=== PATIENT | female | born 1940 | race Caucasian/White ===

== ENCOUNTER → 2017-11-03 | Outpatient (CLI) | payer MEDICARE, BC ==
[~2017-11-03] MED LIST: ADV250/50 INH; HCTZ25 PO; LOR5 PO; MON10 PO; SPIR50TA31 PO
--- NOTE | 2017-11-06 17:26 | RADIOLOGY IMAGING REPORT ---
FACILITY: [facility] PATIENT NAME: SATINDER MCKINNON : [id number] MR: [id number] V: [id number] EXAM DATE: [id number] ORDERING PHYSICIAN: CHRISTIN CARTY TECHNOLOGIST: Gurinder Larios RDNY, [facility] EXAMINATION:TWO-DIMENSIONAL ECHOCARDIOGRAPH REASON:NONRHEUMATIC AORTIC VALVE STENOSIS/EDEMA 2D Measurements (normal values in centimeters) LV endLV endRV endVent.LV PostAorticLeftPercent DiastolicSystolicDiastolicSeptumWallRootAtriumShortening (3.5-5.7)(0.9-2.6)(0.6-1.1)(0.6-1.1)(2.0-3.7)(1.9-4.0)(25-35%) [id number]% STROKE VOLUME: 76ml ESTIMATED EJECTION FRACTION:65-67% LEFT VENTRICLE: Ejection fraction is 60-65% with Grade 1 diastolic dysfunction. There is mild left ventricular hypertrophy. RIGHT VENTRICLE: Normal size & function. RIGHT ATRIUM: Normal size. LEFT ATRIUM: Mildly dilated, no evidence of intra atrial shunting by Color flow Doppler. AORTIC VALVE: Leaflets are poorly visualized but appear sclerotic. Trace regurgitation, mild aortic stenosis noted with a max velocity of 265cm/sec & a mean pressure gradient of 17mm Hg. PULMONIC VALVE: Poorly visualized, trace insufficiency, no significant stenosis. MITRAL VALVE: Shows significant mitral annular calcification. Only trace regurgitation, no significant stenosis. TRICUSPID VALVE: Mild regurgitation without stenosis. RVSP estimated at 45-50mm Hg. PERICARDIUM: No pericardial effusion noted. PLEURAL EFFUSION: No significant pleural effusion. GREAT VESSELS: Ascending aorta appears to be normal size without aneurysm or dissection. OVERALL IMPRESSION: 1. Ejection fraction is 60-65% with Grade 1 diastolic dysfunction. 2. Mild left ventricular hypertrophy. 3. Mild aortic valve stenosis. 4. Mild pulmonary hypertension with an RVSP of 45-50mm Hg. 5. Compared to prior 05/04/10, mild aortic stenosis now present, otherwise unchanged. Dictated by: Mario Zepeda M.D. on 11/03/2017 at 18:11 Transcribed by: SORAYA on 11/06/2017 at 7:04 Approved by: Mario Zepeda M.D. on 11/06/2017 at 17:24 [facility]
== END ==
LOC: RESP 00:17
PROVIDERS: ATTEND Internal Medicine Cardiovascular Disease
DX: I50.30 Unspecified diastolic (congestive) heart failure (principal); I51.7 Cardiomegaly; I35.0 Nonrheumatic aortic (valve) stenosis; I27.20 Pulmonary hypertension, unspecified
CPT/HCPCS: 93306

== ENCOUNTER → 2017-11-06 | Outpatient (CLI) | payer MEDICARE, BC ==
--- NOTE | 2017-11-06 16:02 | RADIOLOGY IMAGING REPORT ---
FACILITY: [facility] PATIENT NAME: Rochelle Lambert : 1940 MR: [id number] V: [id number] EXAM DATE: ORDERING PHYSICIAN: TAMMY QUIROGA TECHNOLOGIST: Location: [facility] Patient: Rochelle Lambert : 1940 Visit/Account:[id number] Date of Sevice: 11/06/2017 Exam type: VENOUS DOPP LOWER BILAT EXTREM History: Bilateral lower extremity new onset of edema and swelling Comparison: None. Findings: The lower extremity veins were imaged bilaterally including the common femoral veins greater saphenou s veins profunda femoral vein superficial femoral vein, popliteal vein, posterior tibial vein peronea l vein and anterior tibial veins revealing no evidence of intraluminal thrombi. The veins were compr essible and demonstrated augmentation IMPRESSION: 1. No sonographic evidence DVT involving the lower extremity veins bilaterally Report Dictated By: Vane Guerin MD at 11/06/2017 3:56 PM Report E-Signed By: Vane Guerin MD at 11/06/2017 3:58 PM WSN:[email or web address]
== END ==
LOC: US 14:53
PROVIDERS: ATTEND Orthopaedic Surgery
DX: R60.0 Localized edema (principal)
CPT/HCPCS: 93970

== ENCOUNTER → 2018-09-04 | Outpatient (CLI) | payer MEDICARE, BC ==
--- NOTE | 2018-09-04 14:28 | EKG ---
FACILITY: [facility] [place] PATIENT NAME: SATINDER MCKINNON : [id number] MR: [id number] V: [id number] EXAM DATE: ORDERING PHYSICIAN: MARILEE BLACKWOOD TECHNOLOGIST: YESSY Test Reason : TACHYCARDIA Blood Pressure : / mmHG Vent. Rate : 175 BPM Atrial Rate : 082 BPM P-R Int : 000 ms QRS Dur : 092 ms QT Int : 180 ms P-R-T Axes : 070 -02 063 degrees QTc Int : 307 ms Sinus rhythm Low voltage QRS Cannot rule out Anterior infarct , age undetermined Abnormal ECG No previous ECGs available Confirmed by SUZY LEDESMA ([id number]) on 09/05/2018 6:36:24 AM Referred By: Confirmed By:SUZY LEDESMA
--- NOTE | 2018-09-04 16:00 | RADIOLOGY IMAGING REPORT ---
FACILITY: [facility] [place] PATIENT NAME: Rochelle Lambert : 1940 MR: [id number] V: [id number] EXAM DATE: ORDERING PHYSICIAN: MARILEE BLACKWOOD TECHNOLOGIST: Location: [facility] [place] Patient: Rochelle Lambert : 1940 Visit/Account:[id number] Date of Sevice: 09/04/2018 Technique: CHEST PA LAT HISTORY: Preop Comparison studies: Chest radiograph February 15, 2007 FINDINGS: No acute airspace consolidation. No pleural effusion. The cardiac silhouette is enlarged and is unchanged. IMPRESSION: 1. No acute cardiopulmonary process. 2. Cardiomegaly. Report Dictated By: Connor Campa DO at 09/04/2018 3:53 PM Report E-Signed By: Connor Campa DO at 09/04/2018 3:55 PM WSN:[id number]
== END ==
LOC: RESP 01:58
PROVIDERS: ATTEND Nurse Practitioner Psychiatric/Mental Health
DX: R09.02 Hypoxemia (principal); R00.0 Tachycardia, unspecified
CPT/HCPCS: 71046; 93005; 94060; 94726; 94729

== ENCOUNTER 2018-10-23 00:19 | Inpatient (IN) | payer MEDICARE, BC ==
[2018-10-22 14:46] LABS: INR 0.91
[~2018-10-23] VITALS: Ht 160 cm; Wt 103.4 kg
[2018-10-23] VITALS (10 sets, daily range): BP systolic 112–137; BP diastolic 73–89
--- NOTE | 2018-10-23 04:31 | LEVENE H&P ---
DATE OF ADMISSION: October 23, 2018 IDENTIFICATION/CHIEF COMPLAINT Rochelle is a 78-year-old woman with a chief complaint of left hip pain. HISTORY OF PRESENT ILLNESS Patient has a longstanding history of hip arthritis, progressively painful and debilitating, refractory to conservative care. Surgery is indicated to relieve symptoms after failure of nonoperative measures. PAST MEDICAL HISTORY Notable for history of atrial fibrillation, hypertension, sleep apnea, asthma, cor pulmonale. PAST SURGICAL HISTORY Notable for repair of an ankle fracture, bunion operation. ALLERGIES 1. DARVON. 2. THE OLD TETANUS VACCINE. 3. HORSE SERUM. CURRENT MEDICATIONS 1. Spironolactone 50 mg p.o. daily. 2. Hydrochlorothiazide 25 mg p.o. daily. 3. Diltiazem 180 mg p.o. daily. 4. Advair 2.5/50 two times per day. 5. Aspirin 81 mg p.o. daily. FAMILY HISTORY Notable for grandfather with heart disease, mother with breast cancer. SOCIAL HISTORY Notable for smoking for a year in the 1960s, none for a long time. She does drink wine on a daily basis. Denies abuse. REVIEW OF SYSTEMS Notable for aortic valve disease and some visual issues. PHYSICAL EXAMINATION GENERAL: This is a healthy female. HEENT: Normocephalic, atraumatic. NECK: Supple. LUNGS: Clear. HEART: Regular. ABDOMEN: Soft. ORTHOPEDIC: Left hip is extremely stiff. Attempt at flexion and rotation produces sharp pain. Hip girdle strength is grossly good. Skin envelope is intact. Calves nontender. Neurovascular function intact. ASSESSMENT Left hip degenerative joint disease, refractory to conservative care. PLAN Per patient request, proceed with total hip arthroplasty. Nature of the procedure, risks, benefits, and the anticipated rehabilitative course were outlined. Risks include but are not limited to , major medical or anesthetic complication, infection, neurovascular injury, blood transfusion, stiffness, scarring, fracture, tendon rupture, instability, leg length discrepancy, implant loosening, migration or failure, persistent or recurrent pain, need for additional surgery, and other unforeseen. She understands and wishes to proceed. A signed permit is placed in the chart. No guarantees are given or implied. [facility] HEALTH SYSTEMCamille
[2018-10-23] MEDS ORDERED: ceFAZolin(*) 2GM/D5W 50ML 50 ML IVPB ONE (12:30)
[2018-10-23] MEDS ORDERED: PREGABALIN 75 MG CAPSULE PO ONE (12:30)
[2018-10-23] MEDS ORDERED: CELECOXIB 200 MG CAP PO ONE (12:30)
[2018-10-23] MEDS ORDERED: FAMOTIDINE 20 MG TAB PO ONE (12:30)
[2018-10-23] MEDS ORDERED: ROPIVACAINE/EPI/CLONIDINE/KET 50 ML SYRINGE INJ ONE (12:30)
[2018-10-23] MEDS ORDERED: TRANEXAMIC AC 1000 MG/10ML SDV 1,000 MG in DEXTROSE 5% 50 ML BAG 50 ML IV ONE (12:30)
[2018-10-23] MEDS ORDERED: LIDOCAINE/SOD BICARB 8.4% SYR ID ONE (12:30)
[2018-10-23] MEDS ORDERED: MIDAZOLAM 2 MG/2 ML VIAL IVP PRN (12:30)
[2018-10-23] MEDS ORDERED: ACETAMINOPHEN 500 MG TAB PO ONE (12:30)
[2018-10-23] MEDS ORDERED: NORMOSOL R SOLN(*) 1000 ML BAG 1,000 ML IV PRN ×2 (12:30→19:15)
[2018-10-23] MEDS ORDERED: fentaNYL CITR 100 MCG/2 ML AMP ONE ×3 (15:04→19:26)
[2018-10-23] MEDS ORDERED: KETAMINE HCL 500 MG/10 ML VIAL ONE (15:06)
[2018-10-23] MEDS ORDERED: PROPOFOL EMUL(*) 10MG/ML 20 ML 20 ML ONE (15:07)
[2018-10-23] MEDS ORDERED: DEXAMETHASONE SOD PHOS 10MG/ML ONE (15:07)
[2018-10-23] MEDS ORDERED: ONDANSETRON 4 MG/2 ML VIAL ONE (15:07)
[2018-10-23] MEDS ORDERED: LIDOCAINE MPF 1% 5 ML VIAL ONE (15:07)
[2018-10-23] MEDS ORDERED: VANCOMYCIN 1 GM VIAL ONE (15:46)
[2018-10-23] MEDS ORDERED: DEXMEDETOMIDINE IN 0.9 % NACL 100 ML IV ONE (17:24)
[2018-10-23] MEDS ORDERED: BENZOCAINE/MENTHOL 1 EACH LOZG PO PRN (19:15)
[2018-10-23] MEDS ORDERED: FLUSH 10 ML SYR IVP PRN (19:15)
[2018-10-23] MEDS ORDERED: BISACODYL 10 MG SUPP PR PRN (19:15)
[2018-10-23] MEDS ORDERED: diphenhydrAMINE 25 MG CAP PO PRN (19:15)
[2018-10-23] MEDS ORDERED: PROMETHAZINE 25 MG/ML 1 ML AMP IVP PRN (19:15)
[2018-10-23] MEDS ORDERED: ACETAMINOPHEN 325 MG TAB PO PRN (19:15)
[2018-10-23] MEDS ORDERED: diphenhydrAMINE 50 MG/ML VIAL IVP PRN (19:15)
[2018-10-23] MEDS ORDERED: ZOLPIDEM TARTRATE 5 MG TAB PO PRN (19:15)
[2018-10-23] MEDS ORDERED: MAGNESIUM HYDROXIDE* 30ML UDCP PO PRN (19:15)
[2018-10-23] MEDS ORDERED: GUAI600T57 PO (20:24)
[2018-10-23] MEDS ORDERED: DILT180C81 PO (20:24)
[2018-10-23] MEDS ORDERED: crill oil PO (20:24)
[2018-10-23] MEDS ORDERED: eye vitamin PO (20:24)
--- NOTE | 2018-10-23 20:29 | Hospitalist Progress Note ---
Subjective Progress Notes Subjective Patient seen post-op. Reviewed PMHx (HTN, aortic stenosis, allergies/asthma) and medications. At present she only c/o dry mouth. She denies any CP/SOB/N/V. Physical Exam Vital Signs Date Time Temp Pulse Resp B/P (MAP) Pulse Ox O2 Delivery O2 Flow Rate FiO2 10/23/18 20:10 83 14 96 10/23/18 20:10 99.0 130/88 (102) Nasal Cannula 3.0 General Appearance: Alert, Awake Cardiovascular: Regular Rate and Rhythm (with systolic murmur) Respiratory: Clear to Auscultation Psych: Alert & Oriented X3 Assessment and Plan Problems: (1) S/P hip replacement Status: Acute Assessment & Plan: She appears to have tolerated OR/anesthesia fairly well. She will be on aspirin 325mg daily for DVT prophylaxis as per Dr. Jimenez. (2) HTN (hypertension) Status: Chronic Assessment & Plan: Will monitor BPs and resume her diltiazem, HCTZ, spironolactone as needed. (3) Asthma Status: Chronic Assessment & Plan: Will continue her Singulair, Advair. (4) Aortic stenosis Status: Chronic Assessment & Plan: She had cardiac evaluation pre-op. No current concerning symptoms. Watch volume status. ADELITA TY MD October 23, 2018 20:29
--- NOTE | 2018-10-23 20:49 | RADIOLOGY IMAGING REPORT ---
FACILITY: [facility] [place] PATIENT NAME: Rochelle Lambert : 1940 MR: [id number] V: [id number] EXAM DATE: ORDERING PHYSICIAN: TAMMY QUIROGA TECHNOLOGIST: Location: [facility] [place] Patient: Rochelle Lambert : 1940 Visit/Account:[id number] Date of Sevice: 10/23/2018 Exam type: Single view the pelvis History: Postoperative left hip arthroplasty Comparison: None. Findings: Postoperative changes are noted from left hip arthroplasty without hardware complication. Patient is rotated. Remainder of the osseous structures demonstrate osteopenia. IMPRESSION: 1. Postoperative changes are noted from recent left hip arthroplasty without hardware complication. Report Dictated By: Pritesh Richter MD at 10/23/2018 8:44 PM Report E-Signed By: Pritesh Richter MD at 10/23/2018 8:45 PM WSN:[id number]
[2018-10-23] MEDS: MONTELUKAST SODIUM 10 MG TAB PO SCH (21:50)
[2018-10-23] MEDS: APAP/HYDROCODONE 325/7.5 TAB PO PRN (23:38)
[2018-10-24] VITALS (10 sets, daily range): BP systolic 82–128; BP diastolic 56–79
[2018-10-24] MEDS: ceFAZolin(*) 1 GM VIAL 1 GM in NS(*) 0.9% 100 ML MINI-BAG 100 ML IVPB SCH ×3 (01:00→17:55)
[2018-10-24] MEDS: DIAZEPAM 5 MG TAB PO PRN ×2 (02:07→20:45)
--- NOTE | 2018-10-24 03:54 | OPERATIVE REPORT 1 ---
EVENT DATE: October 23, 2018 SURGEON: Julio Jimenez MD ANESTHESIOLOGIST: Mehdi Saeed DO ANESTHESIA: General with failed spinal. FILLING WINDER: Klaus Acuna PA-C PREOPERATIVE DIAGNOSIS Left hip degenerative joint disease. POSTOPERATIVE DIAGNOSIS Left hip degenerative joint disease. PROCEDURE PERFORMED Left total hip arthroplasty. ESTIMATED BLOOD LOSS 400 mL. DRAINS None. SPECIMENS None. COMPLICATIONS None apparent. IMPLANTS USED The [employer] system and Trident PSL BERMAN cluster acetabular shell, 52 mm, with a 0- degree polyethylene Trident X3 liner to accommodate 36 mm head; an Accolade II 130-degree neck angle hip stem, size 4, with a Biolox ceramic V40 femoral head, +7.5, 36 mm in diameter. Polyethylene is X3. INDICATIONS Rochelle has intractable pain and disability related to end-stage hip arthritis. Surgery is indicated to relieve symptoms after failure of nonoperative measures. DESCRIPTION OF PROCEDURE Patient was taken to the operating room and placed supine on the operating table. Spinal block was attempted but failed by the anesthesiologist. General anesthesia was induced. Antibiotics and TXA were administered IV. Patient was positioned right lateral decubitus on a well-padded peg board. Pelvis was secured in a vertical position. All bony prominences and superficial nerves were well padded. The left hip girdle and lower extremity were prepped and draped free in the usual sterile fashion for orthopedic surgery. A large posterolateral incision was made, carried down through the skin and subcutaneous layer to the deep fascia. Fascia was incised over the tip of the trochanter, extended distally in line with the femur and proximally in line with the pierre fibers. The pierre fibers were splint bluntly. A large fatty, almost mass-like lesion was encountered on the trochanteric bursa. This was excised and does not have any malignant features, appears to be a lipoma or fat collection. The interval between the abductor and external rotators was identified, and the abductor mechanism was protected with a blunt Hohmann. L- capsulotomy was performed with the horizontal limb above the piriformis. The piriformis and capsule were peeled off the femur. Tissue quality was very poor. This was tagged for later attempt at anatomic reattachment. The femoral head was dislocated. End-stage arthritis was noted. A 1.5 cm neck cut was made consistent with preoperative planning. Femoral head was removed and the femur was translocated anteriorly. Periacetabular retractors were placed with the tips down on bone. Labrum and pulvinar and extensive inflamed synovial tissue were excised, along with large cysts in the dome of the acetabulum. Medialization starts with a 44 mm reamer. Minimal medialization is performed, as it is already significantly eroded. It is expanded in 2 mm increments up to 50 and then 1 mm increments up to 52, where nice rim contact is obtained. A trial 52 has nice [id number]-mo-tsii fit. Due to questionable condition of the tissue, I elected not to overream. At this point, the surfaces were lavaged. Bone graft was taken from the femoral head to fill the defects in the cysts, and the cup was impacted in approximately 45 degrees of lateral opening and 15 to 20 degrees of anteversion using the transverse acetabular ligament, extracorporeal guide and internal bony landmarks to guide socket placement. There was a bit of posterior-superior overhang. This was felt to be ideal. As cup is rock stable, no adjuvant fixation is felt to be needed. The shell is lavaged and the liner is locked into the socket. Attention was turned to femoral preparation. The superior neck was resected with a cookie cutter. Peyman awl finds the canal. Tapered broaching was performed to a 4, where nice solid fill is obtained. Care was taken to lateralize and follow the washoe version of the calcar to about 15 degrees. Trial reduction was performed off this. Good islam of soft tissue tension and stability were achievable. The actual stem is then seated and seats at the same height. Trial reduction was performed with various neck lengths. A +7.5 is felt to be optimal. Verma taper is lavaged and dried. The actual Biolox head is impacted into position. Joint is reduced. Capsule is of very poor quality, and she has been lengthened a bit. Therefore, capsular closure is not performed. Hip is stable regardless. The wound is copiously lavaged. Pain cocktail infiltrated throughout. Vancomycin powder is placed deep in the wound. Deep fascia is closed with #2 Ethibond distally, #2 Vicryl proximally, subcu with 3-0 Vicryl, and the skin with surgical raj. Xeroform is applied, followed by dry sterile dressing and compression wrap. Patient is rolled supine, abductor pillow placed, awakened from anesthesia and taken to the recovery room in stable condition, having tolerated the procedure well. Plan is for standard [facility] rehab protocol, weightbearing as tolerated, posterior hip precautions. MTDD
[2018-10-24] MEDS: SALMETEROL/FLUTIC 250/50 1 INH INH SCH ×2 (05:38→17:03)
[2018-10-24] MEDS ORDERED: HYDR-654 PO (07:50)
[2018-10-24] MEDS: CELECOXIB 200 MG CAP PO SCH ×2 (08:32→17:55)
[2018-10-24] MEDS: ASPIRIN 325 MG TAB PO SCH (08:32)
[2018-10-24] MEDS: HYDROCHLOROTHIAZIDE 25 MG TAB PO SCH (08:33)
[2018-10-24] MEDS: SPIRONOLACTONE 25 MG TAB PO SCH (08:34)
[2018-10-24] MEDS: DILTIAZEM CD 180 MG CAPCR PO SCH (09:45)
--- NOTE | 2018-10-24 10:55 | NUR ---
Physical Therapy Impression PT eval completed with bed mobility and gait trng to access BR; close chair follow required to ensure safety. Physical Therapy Goals 1. Pt to be SBA/CGA for sit to/from stand transfers 2. Pt to be Min assist for bed mobility and sup<>sit trnsfers 3. Pt to ambulate x 200' with least restrictive device and SBA 4. Pt to aurora up/down small height platform step to simulate entry to home. Patient's Goals
[2018-10-24] MEDS: APAP/HYDROCODONE 325/7.5 TAB PO PRN ×2 (11:58→21:57)
--- NOTE | 2018-10-24 12:50 | Hospitalist Progress Note ---
Subjective Progress Notes Subjective MAMADOU overnight, doing well post op. Continue work with PT Physical Exam Vital Signs Date Time Temp Pulse Resp B/P (MAP) Pulse Ox O2 Delivery O2 Flow Rate FiO2 10/24/18 11:57 97 16 103/66 (78) 97 Nasal Cannula 3.0 10/24/18 08:30 98.6 Intake and Output 10/24/18 07:00 Intake Total 3200 ml Balance 3200 ml Intake Oral 100 ml IV Total 1550 ml Other 1550 ml # Voids 1 Neuro: No Gross deficits Cardiovascular: Other (irregularly irregular, 3/6 systolic RSB murmur) Respiratory: No Respiratory Distress Extremities: Warm, Pulses, Perfused Assessment and Plan Problems: (1) S/P hip replacement Status: Acute Assessment & Plan: She appears to have tolerated OR/anesthesia fairly well. She will be on aspirin 325mg daily for DVT prophylaxis as per Dr. Jimenez. (2) HTN (hypertension) Status: Chronic Assessment & Plan: Will monitor BPs and resume her diltiazem, HCTZ, spironolactone as needed. (3) Asthma Status: Chronic Assessment & Plan: Will continue her Singulair, Advair. (4) Aortic stenosis Status: Chronic Assessment & Plan: She had cardiac evaluation pre-op. No current concerning symptoms. Watch volume status. Exam Sepsis Risk: No Definite Risk VEGA KATYA CLARK DO October 24, 2018 12:50
[2018-10-24] MEDS ORDERED: LR 500 ML BAG 500 ML IV ONE (18:40)
--- NOTE | 2018-10-24 18:59 | EKG ---
[place] [facility] [place] NAME: SATINDER MCKINNON : [id number] MR: [id number] V: [id number] EXAM DATE: ORDERING PHYSICIAN: RK CALVO TECHNOLOGIST: CHITO Test Reason : IRREG HR Blood Pressure : / mmHG Vent. Rate : 076 BPM Atrial Rate : 090 BPM P-R Int : 168 ms QRS Dur : 098 ms QT Int : 390 ms P-R-T Axes : 000 -10 033 degrees QTc Int : 438 ms Sinus rhythm with marked sinus arrhythmia vs wandering atrial pacemaker Otherwise normal ECG When compared with ECG of 04-SEP-2018 13:10, Vent. rate has decreased BY 99 BPM Minimal criteria for Anterior infarct are no longer present Confirmed by RK CALVO ([id number]) on 10/24/2018 11:14:07 PM Referred By: UMESH Confirmed By:RK CALVO
--- NOTE | 2018-10-24 19:04 | Miscellaneous Provider Note ---
Miscellaneous Provider Note Note Staff concerned about an irregular heart beat and SBP 80-90's. The patient denies cp/sob. ECG showed a wandering atrial pacer vs NSR with PAC. She had a preop stress echo that showed mild/mod and normal EF. No WM abnormalities. US of the IVC, tonight, shows respiratory collapse of >50% diameter and the RV outflow tract on the parasternal long axis appears reduced in size to the aortic outflow tract and the LA. Will give her a bolus of LR and follow. RK CALVO MD October 24, 2018 19:04
[2018-10-24] MEDS: MONTELUKAST SODIUM 10 MG TAB PO SCH (20:45)
[2018-10-24] MEDS: DOCUSATE SODIUM 100 MG CAP PO SCH (20:45)
[2018-10-25] MEDS: DIAZEPAM 5 MG TAB PO PRN (03:43)
[2018-10-25] MEDS: SALMETEROL/FLUTIC 250/50 1 INH INH SCH ×2 (05:26→18:05)
[2018-10-25] MEDS: APAP/HYDROCODONE 325/7.5 TAB PO PRN ×3 (05:44→14:12)
[2018-10-25 05:46] VITALS: BP 118/72
--- NOTE | 2018-10-25 07:31 | NUR ---
Occupational Therapy Impression Pt. lying in bed, comfortably, receptive to all information/education but not wanted to get OOB at this time or "practice" utilizing DME to get dressed as pt. states she has been using DME at home for months to perform ADL's. Pt. states that she would like to d/c to [facility] but is open to d/c to home with care if this is not an option. Pt. ready for d/c to home with HH care when cleared medically and by PT services. Occupational Therapy Goals Patient's Goal
[2018-10-25 08:36] VITALS: BP 113/57
[2018-10-25] MEDS: DOCUSATE SODIUM 100 MG CAP PO SCH ×2 (08:42→21:26)
[2018-10-25] MEDS: HYDROCHLOROTHIAZIDE 25 MG TAB PO SCH (08:42)
[2018-10-25] MEDS: ASPIRIN 325 MG TAB PO SCH (08:42)
[2018-10-25] MEDS: CELECOXIB 200 MG CAP PO SCH ×2 (08:42→17:22)
[2018-10-25] MEDS: SPIRONOLACTONE 25 MG TAB PO SCH (08:42)
[2018-10-25] MEDS: DILTIAZEM CD 180 MG CAPCR PO SCH (08:42)
[2018-10-25] MEDS: POLYETHYLENE GLYCOL 17 GM PKT PO SCH (08:42)
[2018-10-25] MEDS: guaiFENesin 600 MG TABCR PO SCH ×2 (09:40→21:26)
--- NOTE | 2018-10-25 11:43 | Hospitalist Progress Note ---
Subjective Progress Notes Subjective She was admitted s/p hip replacement. Staff reports much improvement in heart rate and urine output since bolus given last night. No new concerns from staff this morning. Patient Complains of: Cardiovascular: No: Chest Pain Respiratory: No: Shortness of Breath Physical Exam Vital Signs Date Time Temp Pulse Resp B/P (MAP) Pulse Ox O2 Delivery O2 Flow Rate FiO2 10/25/18 09:51 97 Nasal Cannula 2.0 10/25/18 08:36 98.7 70 16 113/57 (75) Intake and Output 10/25/18 07:00 Intake Total 2192 ml Balance 2192 ml Intake Oral 1130 ml IV Total 1062 ml # Voids 7 General Appearance: Alert, Awake, No Acute Distress, Afebrile Cardiovascular: Regular Rate and Rhythm Respiratory: No Respiratory Distress, Clear to Auscultation GI: Soft and Non-Tender Psych: Alert & Oriented X3, Appropriate Mood & Affect Assessment and Plan Problems: (1) S/P hip replacement Status: Acute Assessment & Plan: She appears to have tolerated OR/anesthesia fairly well. She will be on aspirin 325mg daily for DVT prophylaxis as per Dr. Jimenez. (2) HTN (hypertension) Status: Chronic Assessment & Plan: Will monitor BPs and resume her diltiazem, HCTZ, spironolactone as needed. (3) Asthma Status: Chronic Assessment & Plan: Will continue her Singulair, Advair. (4) Aortic stenosis Status: Chronic Assessment & Plan: She had cardiac evaluation pre-op. No current concerning symptoms. Watch volume status. Exam Sepsis Risk: No Definite Risk KENDAL BAIRD TRAFFIC ROUTING ENGINEER October 25, 2018 11:43
[2018-10-25 13:12] VITALS: BP 103/59
--- NOTE | 2018-10-25 16:15 | NUR ---
Physical Therapy Impression Pt aurora review of winnie walker use; FWW ambulation in hallway x 200' and up/down low platform step x 2 reps to simulate stairs to home. Pt's bed mobility is improving slowly. Physical Therapy Goals 1. Pt to be SBA/CGA for sit to/from stand transfers 2. Pt to be Min assist for bed mobility and sup<>sit trnsfers 3. Pt to ambulate x 200' with least restrictive device and SBA 4. Pt to aurora up/down small height platform step to simulate entry to home. Patient's Goals
[2018-10-25 16:18] VITALS: BP 117/84
[2018-10-25 19:52] VITALS: BP 115/69
[2018-10-25] MEDS: MONTELUKAST SODIUM 10 MG TAB PO SCH (21:26)
[2018-10-25 22:29] VITALS: BP 120/81
[2018-10-26 01:57] VITALS: BP 123/75
[2018-10-26] MEDS: APAP/HYDROCODONE 325/7.5 TAB PO PRN ×2 (01:57→15:14)
[2018-10-26] MEDS: SALMETEROL/FLUTIC 250/50 1 INH INH SCH (05:31)
[2018-10-26 07:41] VITALS: BP 108/67
[2018-10-26] MEDS: DILTIAZEM CD 180 MG CAPCR PO SCH ×2 (07:50→09:47)
[2018-10-26] MEDS: SPIRONOLACTONE 25 MG TAB PO SCH (07:50)
[2018-10-26] MEDS: HYDROCHLOROTHIAZIDE 25 MG TAB PO SCH (07:50)
[2018-10-26] MEDS: DOCUSATE SODIUM 100 MG CAP PO SCH (08:39)
[2018-10-26] MEDS: ASPIRIN 325 MG TAB PO SCH (08:39)
[2018-10-26] MEDS: guaiFENesin 600 MG TABCR PO SCH (08:39)
[2018-10-26] MEDS: CELECOXIB 200 MG CAP PO SCH (08:40)
[2018-10-26] MEDS: POLYETHYLENE GLYCOL 17 GM PKT PO SCH (08:40)
[2018-10-26] MEDS ORDERED: ASPI-757 PO (09:03)
[2018-10-26 11:30] VITALS: BP 107/85
--- NOTE | 2018-10-26 11:47 | Hospitalist Progress Note ---
Subjective Progress Notes Subjective She was admitted s/p hip replacement. She has no complaints this morning. She would like to go home today. Patient Complains of: Cardiovascular: No: Chest Pain Respiratory: No: Shortness of Breath Physical Exam Vital Signs Date Time Temp Pulse Resp B/P (MAP) Pulse Ox O2 Delivery O2 Flow Rate FiO2 10/26/18 11:30 98.2 16 107/85 (92) 10/26/18 07:41 96 Nasal Cannula 3.0 10/26/18 07:41 76 Intake and Output 10/26/18 07:00 Intake Total 1600 ml Balance 1600 ml Intake Oral 1600 ml # Voids 6 General Appearance: Alert, Awake, No Acute Distress, Afebrile Neuro: No Gross deficits Cardiovascular: Regular Rate and Rhythm Respiratory: No Respiratory Distress, Clear to Auscultation GI: Soft and Non-Tender Psych: Alert & Oriented X3, Appropriate Mood & Affect Assessment and Plan Problems: (1) S/P hip replacement Status: Acute Assessment & Plan: She appears to have tolerated OR/anesthesia fairly well. She will be on aspirin 325mg daily for DVT prophylaxis as per Dr. Jimenez. (2) HTN (hypertension) Status: Chronic Assessment & Plan: Will monitor BPs and resume her diltiazem, HCTZ, spironolactone as needed. (3) Asthma Status: Chronic Assessment & Plan: Will continue her Singulair, Advair. (4) Aortic stenosis Status: Chronic Assessment & Plan: She had cardiac evaluation pre-op. No current concerning symptoms. Watch volume status. Exam Sepsis Risk: No Definite Risk KENDAL BAIRD October 26, 2018 11:47
--- NOTE | 2018-10-26 14:00 | NUR ---
Physical Therapy Impression PT goals met; pt ready for d/c and indicates that she plans to have out pt PT at [facility] and may consider private pay health at home if needed. Physical Therapy Goals 1. Pt to be SBA/CGA for sit to/from stand transfers 2. Pt to be Min assist for bed mobility and sup<>sit trnsfers 3. Pt to ambulate x 200' with least restrictive device and SBA 4. Pt to aurora up/down small height platform step to simulate entry to home. Patient's Goals
== END 2018-10-26 15:40 | disposition home or self-care (01) | DRG 470 ==
LOC: OR 00:19 → MED 20:00
PROVIDERS: ADMIT Orthopaedic Surgery; ATTEND Orthopaedic Surgery
PROC: 0SRB04A Replacement of Left Hip Joint with Ceramic on Polyethylene Synthetic Substitute, Uncemented, Open Approach (ICD-10-PCS; principal; 2018-10-23 14:45)
DX: M16.12 Unilateral primary osteoarthritis, left hip (principal); Z68.41 Body mass index [BMI] 40.0-44.9, adult; I48.2 Chronic atrial fibrillation; I10 Essential (primary) hypertension; I27.81 Cor pulmonale (chronic); I35.0 Nonrheumatic aortic (valve) stenosis; R06.81 Apnea, not elsewhere classified; E66.9 Obesity, unspecified; R09.02 Hypoxemia; J44.9 Chronic obstructive pulmonary disease, unspecified; Z88.8 Allergy status to other drugs, medicaments and biological substances; Z88.7 Allergy status to serum and vaccine; Z87.891 Personal history of nicotine dependence
CPT/HCPCS: 36415; 72170; 85610; 86850; 86900; 86901; 93005; 94640; 97161; C1776; J0690; J1100; J2001; J2250; J2405; J2704; J3010; J3370; J7060; J7120

== ENCOUNTER → 2018-11-05 | Outpatient (CLI) | payer MEDICARE, BC ==
[~2018-11-05] MED LIST changes: +ASPI-757 PO; +DILT180C81 PO; +GUAI600T57 PO; +HYDR-654 PO; +crill oil PO; +eye vitamin PO
--- NOTE | 2018-11-05 16:26 | RADIOLOGY IMAGING REPORT ---
FACILITY: [facility] - [place] PATIENT NAME: Rochelle Lambert : 1940 MR: [id number] V: [id number] EXAM DATE: ORDERING PHYSICIAN: TAMMY QUIROGA TECHNOLOGIST: [facility] Patient: Rochelle Lambert : 1940 Visit/Account:[id number] Date of Sevice: 11/05/2018 Exam type: HIP LEFT History: Pain in left hip status post fall, hip surgery 10/23/2018 Comparison: October 23, 2018. Findings: Three views the left hip demonstrate a left hip arthroplasty that appears in good anatomic alignment. No evidence of acute fracture or dislocation. No evidence of prosthetic loosening. The pubic symp hysis appears to be intact IMPRESSION: 1. Left hip arthroplasty appears to been good anatomic alignment with no evidence of acute fracture or dislocation Report Dictated By: Vane Guerin MD at 11/05/2018 4:20 PM Report E-Signed By: Vane Guerin MD at 11/05/2018 4:21 PM WSN:[email or web address]
== END ==
LOC: RAD 12:23
PROVIDERS: ATTEND Orthopaedic Surgery
DX: T84.84XA Pain due to internal orthopedic prosthetic devices, implants and grafts, initial encounter (principal)

== ENCOUNTER 2018-11-12 11:49 | Emergency (ER) | payer MEDICARE, BC ==
[2018-11-12] MEDS ORDERED: METH-280 PO (12:04)
[2018-11-12] MEDS ORDERED: LORA10CA3 PO (12:04)
[2018-11-12] MEDS ORDERED: POTA99TA6 PO (12:04)
--- NOTE | 2018-11-12 12:05 | ER Report ---
History and Physical Time Seen By MD: 12:05 Hx. of Stated Complaint: fell about 0400 this am HPI/ROS CHIEF COMPLAINT: Fall, hit head HISTORY OF PRESENT ILLNESS: 78 year old female presents to ED after having a fall this morning and hitting her head. Patient reports she really doesn't remember the fall, however, she assumes she was going to the bathroom around 0400, and after she washed her hands she fell and hit the right side of her forehead and eye on the counter. Her then called EMS to get her up. She declined coming to the ED at that time. She reports she does not know how she fell, unsure if she was dizzy, and unsure if she tripped over anything. Patient reports she thinks she fell on her right hip, but denies pain in that area. Reports pain with palpation only of the right eye and right above the right eyebrow where the laceration is located. She reports she suspects she fell due to her medications and the fact she drank "a stiff glass of adolfo" last night prior to going to bed. REVIEW OF SYSTEMS: Constitutional: No fever. No change in appetite. HENT: Pain with palpation of right eye and above right eyebrow. Denies headache, blurry vision, dizziness. Respiratory: No cough, no dyspnea. Cardiovascular: No chest pain, no palpitations. Gastrointestinal: No vomiting, no abdominal pain. Musculoskeletal: No back pain. Allergies: Coded Allergies: egg (Verified Allergy, Severe, 11/12/18) propoxyphene (Verified Allergy, Mild, nausea, 11/12/18) Uncoded Allergies: horse serum (Allergy, Unknown, 10/17/18) Home Meds Active Scripts Aspirin (ASPIRIN) 325 Mg Tablet, 325 MG PO QDAY, #30 TAB Prov:KENDAL BAIRD Jasbir PEDIATRIC ORTHODONTIST 10/26/18 Reported Medications Dicloxacillin Sodium (DICLOXACILLIN SODIUM) 500 Mg Capsule, 500 MG PO BID, CAPSULE 11/12/18 Potassium Gluconate (POTASSIUM) 99 Mg Tablet, 99 MG PO 11/12/18 Loratadine (CLARITIN) 10 Mg Capsule, 10 MG PO PRN, CAPSULE 11/12/18 Methocarbamol (METHOCARBAMOL) 750 Mg Tablet, 750 MG PO QID 11/12/18 [eye vitamin] No Conflict Check, 1 TAB PO DAILY 10/23/18 [crill oil] No Conflict Check, 1 TAB PO DAILY 10/23/18 Guaifenesin (MUCINEX) 600 Mg Tablet.er, 600 MG PO BID 10/23/18 Diltiazem Hcl (DILTIAZEM ER) 180 Mg Cap.er.deg, 180 MG PO DAILY 10/23/18 Montelukast Sodium (Singulair) 10 Mg Tab, 10 MG PO QDAY, 0 Refills 03/28/10 Hydrochlorothiazide (Hydrochlorothiazide) 25 Mg Tab, 25 MG PO QDAY, 0 Refills Hold for 2 days, then resume. If you feel dizzy, stop medication and notify Primary Care Provider. 03/28/10 Spironolactone (Spironolactone) 50 Mg Tablet, 50 MG PO DAILY, 0 Refills Hold for 4 days, then resume. If you feel dizzy, stop medication and call your primary care provider. 03/28/10 Salmeterol Xinaf/Fluticasone (Advair 250/50 Diskus) 250 Mcg/50 Mcg Inh, 1 PUFF INH BID, 0 Refills 1 PUFF 03/28/10 Discontinued Reported Medications Hydrocodone Bit/Acetaminophen (NORCO 7.5-325 TABLET) 1 Each Tablet, 1 EACH PO Q4H PRN for PAIN, #42 10/24/18 Past Medical/Surgical History Past medical hx of HTN, asthma, spurs on spine, arthritis, fracture of ankle 1998, eczema, and aortic stenosis. Past surgical hx of hysterectomy, ankle surgery in 1998, bunion surgery 1999, left hip replacement October 2018, tonsillectomy, cataract surgery. Reviewed Nurses Notes: Yes Hx Smoking: Yes (FOR 3 YRS 1960) Smoking Status: Former Smoker Hx Substance Use Disorder: No Hx Alcohol Use: Yes Constitutional Vital Sign - Last 24 Hours 11/12/18 11/12/18 11/12/18 11/12/18 11:55 12:00 12:30 13:00 Temp 98.7 Pulse 103 111 101 Resp 18 B/P (MAP) 128/85 123/89 (100) 121/76 (91) Pulse Ox 94 89 95 97 O2 Delivery Room Air 11/12/18 11/12/18 11/12/18 11/12/18 14:00 14:30 15:00 15:30 Pulse ??? 106 102 ??? B/P (MAP) 118/81 (93) Pulse Ox 96 96 96 11/12/18 11/12/18 11/12/18 15:33 16:00 16:30 Pulse 111 112 B/P (MAP) 123/82 (96) 125/72 (89) 108/80 (89) Pulse Ox 94 95 Physical Exam General Appearance: The patient is alert, has no immediate need for airway protection and no current signs of toxicity. Eyes: Pupils equal and round no injection. Respiratory: Chest is non tender, lungs are clear to auscultation. Cardiac: Heart rate tachy, regular rhythm, 3/6 murmur- patient has hx of aortic stenosis Gastrointestinal: Abdomen is soft and non tender, no masses, bowel sounds normal. Musculoskeletal: Pain with palpation to right eyebrow and eye. Neck: Neck is s upple and non tender. Extremities have full range of motion and are non tender. Neuro: Alert x3. Neuro grossly intact. Skin: Has laceration above right eyebrow. Also has swollen and bruised right eye; it is swollen shut. Patient reports she still has vision out of that eye. Patient's left hip with erythema, edema and warmth around incision site of left hip. DIFFERENTIAL DIAGNOSIS: After history and physical exam differential diagnosis was considered for laceration above right eyebrow, stroke, brain bleed, [place], UTI, pneumonia, medication interaction. Medical Decision Making Data Points Result Diagram: 11/12/18 1237 11/12/18 1237 Laboratory Hematology Test 11/12/18 12:37 11/12/18 13:48 Red Blood Count 3.05 M/uL (4.17-5.56) Mean Corpuscular Volume 98.0 fL (80.0-96.0) Mean Corpuscular Hemoglobin 32.6 pg (26.0-33.0) Mean Corpuscular Hemoglobin Concent 33.3 g/dL (32.0-36.0) Red Cell Distribution Width 13.8 % (11.5-14.5) Mean Platelet Volume 6.3 fL (7.2-11.1) Neutrophils (%) (Auto) 78.9 % (39.4-72.5) Lymphocytes (%) (Auto) 9.2 % (17.6-49.6) Monocytes (%) (Auto) 8.8 % (4.1-12.4) Eosinophils (%) (Auto) 2.5 % (0.4-6.7) Basophils (%) (Auto) 0.6 % (0.3-1.4) Nucleated RBC Relative Count (auto) 0.0 /100WBC Neutrophils # (Auto) 4.8 K/uL (2.0-7.4) Lymphocytes # (Auto) 0.6 K/uL (1.3-3.6) Monocytes # (Auto) 0.5 K/uL (0.3-1.0) Eosinophils # (Auto) 0.2 K/uL (0.0-0.5) Basophils # (Auto) 0.0 K/uL (0.0-0.1) Nucleated RBC Absolute Count (auto) 0.00 K/uL Prothrombin Time 12.7 seconds (12.0-14.4) Prothromb Time International Ratio 0.95 Activated Partial Thromboplast Time 32 seconds (23-35) Sodium Level 134 mmol/L (137-145) Potassium Level 4.1 mmol/L (3.5-5.0) Chloride Level 93 mmol/L (98-107) Carbon Dioxide Level 30 mmol/L (22-31) Blood Urea Nitrogen 11 mg/dl (7-18) Creatinine 0.50 mg/dl (0.52-1.04) Glomerular Filtration Rate Calc > 60.0 Random Glucose 100 mg/dl (75-110) Lactate 1.1 mmol/L (0.7-2.1) Calcium Level 8.7 mg/dl (8.4-10.2) Total Bilirubin 0.6 mg/dl (0.2-1.3) Aspartate Amino Transf (AST/SGOT) 23 U/L (0-35) Alanine Aminotransferase (ALT/SGPT) 33 U/L (0-56) Alkaline Phosphatase 93 U/L (0-126) Troponin I < 0.012 ng/ml Total Protein 6.0 g/dl (6.3-8.2) Albumin 3.4 g/dl (3.5-5.0) Urine Color Yellow Urine Clarity Clear Urine pH 6.0 pH (4.8-9.5) Urine Specific [place] 1.015 Urine Protein Negative mg/dL (NEGATIVE) Urine Glucose (UA) Negative mg/dL (NEGATIVE) Urine Ketones Trace mg/dL (NEGATIVE) Urine Blood Negative (NEGATIVE) Urine Nitrite Negative (NEGATIVE) Urine Bilirubin Negative (NEGATIVE) Urine Urobilinogen 0.2 mg/dL (0.2-1.9) Urine Leukocyte Esterase Negative (NEGATIVE) Urine RBC <1 /HPF (0-2/HPF) Urine WBC 1 /HPF (0-5/HPF) Urine Squamous Epithelial Cells Many /LPF (</=FEW) Urine Bacteria Negative /HPF (NONE-FEW) Urine Mucus None /HPF (NONE-FEW) Chemistry Test 11/12/18 12:37 11/12/18 13:48 White Blood Count 6.1 k/uL (4.5-11.0) Red Blood Count 3.05 M/uL (4.17-5.56) Hemoglobin 9.9 g/dL (12.0-16.0) Hematocrit 29.9 % (34.0-47.0) Mean Corpuscular Volume 98.0 fL (80.0-96.0) Mean Corpuscular Hemoglobin 32.6 pg (26.0-33.0) Mean Corpuscular Hemoglobin Concent 33.3 g/dL (32.0-36.0) Red Cell Distribution Width 13.8 % (11.5-14.5) Platelet Count 407 K/uL (150-450) Mean Platelet Volume 6.3 fL (7.2-11.1) Neutrophils (%) (Auto) 78.9 % (39.4-72.5) Lymphocytes (%) (Auto) 9.2 % (17.6-49.6) Monocytes (%) (Auto) 8.8 % (4.1-12.4) Eosinophils (%) (Auto) 2.5 % (0.4-6.7) Basophils (%) (Auto) 0.6 % (0.3-1.4) Nucleated RBC Relative Count (auto) 0.0 /100WBC Neutrophils # (Auto) 4.8 K/uL (2.0-7.4) Lymphocytes # (Auto) 0.6 K/uL (1.3-3.6) Monocytes # (Auto) 0.5 K/uL (0.3-1.0) Eosinophils # (Auto) 0.2 K/uL (0.0-0.5) Basophils # (Auto) 0.0 K/uL (0.0-0.1) Nucleated RBC Absolute Count (auto) 0.00 K/uL Prothrombin Time 12.7 seconds (12.0-14.4) Prothromb Time International Ratio 0.95 Activated Partial Thromboplast Time 32 seconds (23-35) Glomerular Filtration Rate Calc > 60.0 Lactate 1.1 mmol/L (0.7-2.1) Calcium Level 8.7 mg/dl (8.4-10.2) Total Bilirubin 0.6 mg/dl (0.2-1.3) Aspartate Amino Transf (AST/SGOT) 23 U/L (0-35) Alanine Aminotransferase (ALT/SGPT) 33 U/L (0-56) Alkaline Phosphatase 93 U/L (0-126) Troponin I < 0.012 ng/ml Total Protein 6.0 g/dl (6.3-8.2) Albumin 3.4 g/dl (3.5-5.0) Urine Color Yellow Urine Clarity Clear Urine pH 6.0 pH (4.8-9.5) Urine Specific [place] 1.015 Urine Protein Negative mg/dL (NEGATIVE) Urine Glucose (UA) Negative mg/dL (NEGATIVE) Urine Ketones Trace mg/dL (NEGATIVE) Urine Blood Negative (NEGATIVE) Urine Nitrite Negative (NEGATIVE) Urine Bilirubin Negative (NEGATIVE) Urine Urobilinogen 0.2 mg/dL (0.2-1.9) Urine Leukocyte Esterase Negative (NEGATIVE) Urine RBC <1 /HPF (0-2/HPF) Urine WBC 1 /HPF (0-5/HPF) Urine Squamous Epithelial Cells Many /LPF (</=FEW) Urine Bacteria Negative /HPF (NONE-FEW) Urine Mucus None /HPF (NONE-FEW) Coagulation Test 11/12/18 12:37 Prothrombin Time 12.7 seconds Prothromb Time International Ratio 0.95 Activated Partial Thromboplast Time 32 seconds Urinalysis Test 11/12/18 13:48 Urine Color Yellow Urine Clarity Clear Urine pH 6.0 pH (4.8-9.5) Urine Specific [place] 1.015 Urine Protein Negative mg/dL (NEGATIVE) Urine Glucose (UA) Negative mg/dL (NEGATIVE) Urine Ketones Trace mg/dL (NEGATIVE) Urine Blood Negative (NEGATIVE) Urine Nitrite Negative (NEGATIVE) Urine Bilirubin Negative (NEGATIVE) Urine Urobilinogen 0.2 mg/dL (0.2-1.9) Urine Leukocyte Esterase Negative (NEGATIVE) Urine RBC <1 /HPF (0-2/HPF) Urine WBC 1 /HPF (0-5/HPF) Urine Squamous Epithelial Cells Many /LPF (</=FEW) Urine Bacteria Negative /HPF (NONE-FEW) Urine Mucus None /HPF (NONE-FEW) EKG/Imaging EKG Interpretation 12 lead EKG: Rhythm: Sinus tachycardia with ventricular rate of 104bpm [place]: normal QRS: normal ST segments: normal Monitor Interpretation: Sinus Tachycardia Imaging PATIENT NAME: Rochelle Lambert : 1940 MR: [id number] V: [id number] EXAM DATE: ORDERING PHYSICIAN: BLANCA COSBY TECHNOLOGIST: Location: [facility] - [place] Patient: Rochelle Lambert : 1940 Visit/Account:[id number] Date of Sevice: 11/12/2018 EXAMINATION: Head CT without intravenous contrast HISTORY: Fall. Hit head. COMPARISON: None. TECHNIQUE: Contiguous axial images were obtained from the skull base to the vertex without intravenous contrast. Sagittal and coronal reformatted images are also submitted. One of the following dose optimization techniques was utilized in the performance of this exam: Automated exposure control; adjustment of the mA and/or kV according to the patient's size; or use of an iterative reconstruction technique. Specific details can be referenced in the facility's radiology CT exam operational policy. FINDINGS: Brain and intracranial structures: Ventricles, sulci, and cisterns are normal in size. Mae-white matter differentiation is maintained. No midline shift, acute hemorrhage, acute infarct, or mass. Vessels: Mild calcification of the carotid siphons. Calvarium / scalp: Right frontal scalp hematoma. No acute fracture of the calvarium. Skull base / visualized face: Acute blowout fracture of the floor of the right orbit with displacement of fragments into the right maxillary sinus. Visualized sinuses / orbits: Acute blowout fracture of the floor of the right orbit. Fracture fragments are displaced into the right maxillary sinus orbital fat in the inferior rectus muscle protrudes through the defect into the upper right maxillary sinus. There is air within the right orbit and right periorbital soft tissues. There is swelling in the right periorbital soft tissues there is a small amount of blood within the right maxillary sinus. Trace mucosal thickening in the left maxillary sinus. Mild patchy mucosal thickening in the ethmoid air cells. IMPRESSION: No acute intracranial hemorrhage. Acute blowout fracture of the floor of the right orbit. Right frontal scalp hematoma and right periorbital soft tissue swelling. Exam type: CHEST PA LAT History: Fall Comparison: September 04, 2018. Findings: There is mild chronic peribronchial thickening bilaterally. There is no evidence of acute appearing infiltrates, pleural effusions or pulmonary edema. Cardiac silhouette is mildly enlarged. This calcification the mitral annulus. There are spondylotic changes in the thoracic spine. IMPRESSION: 1. Mild chronic peribronchial thickening and mild cardiomegaly although no acute cardiopulmonary process is seen Exam type: PELVIS History: Fell this morning on right hip, recent left hip replacement Comparison: October 23, 2018. Findings: An AP view the pelvis and an AP view of the left hip demonstrates a left hip arthroplasty that appears in good anatomic alignment in AP projection. No gross evidence of acute pelvic fracture. There are spondylotic changes lower lumbar spine IMPRESSION: 1. Left hip arthroplasty appears in good anatomic alignment No evidence of a pelvic fracture ED Course/Re-evaluation ED Course Upon arrival to the ED, patient admitted to an exam room, hx and physical obtained, differentials considered. Patient presents after having a fall this morning and hitting her head. Patient reports she really doesn't remember the fall, however, she assumes she was going to the bathroom around 0400, and after she washed her hands she fell and hit the right side of her forehead and eye on the counter. Her then called EMS to get her up. She declined coming to the ED at that time. She reports she does not know how she fell, unsure if she was dizzy, and unsure if she tripped over anything. Patient reports she thinks she fell on her right hip, but denies pain in that area. She reports she suspects she fell due to her medications and the fact she drank "a stiff glass of adolfo" last night prior to going to bed. Patient has hx of left total hip replacement approximately [address] Gutierrez. She was placed on antibiotics 3 days ago for a cellulitis of the left hip. Patient reports she was placed on Dicloxacillin and has given her nausea and some dizziness. On exam, lungs are clear. Heart with grade 3/6 murmur likely due to aortic stenosis. Yaquelin ent has approximately 2cm laceration to above right eyebrow. Right eye swollen shut with bruising. Patient's left hip with erythema, edema and warmth around incision site. Neuro grossly intact. IV started. CBC, CMP, troponin, lactate, PT, protime, blood cultures, UA, EKG, chest x-ray, pelvic x-ray, and CT of head ordered. Gave 1gram of vancomycin due to the erythema, warmth, and edema of left hip. Labs unremarkable with WBC 6.1, neutrophils slightly elevated 78.9%, albumin slightly low at 3.4. Negative troponin, negative urine, Normal PT and protime. H&H slightly low at 9.9 and 29.9. UA negative. EKG with sinus tach at a ventricular rate of 104bpm. CT of head with no acute intracranial bleed, however there is a blowout fracture of the floor of the right orbit. No acute pelvic fracture and no acute cardiopulmonary process on chest x-ray. Procedure: Laceration repair. Verbal consent was obtained from the patient. The 2cm laceration above the right eyebrow was anesthetized in the usual fashion. The wound was scrubbed, draped and explored to its base with a gloved finger. There were no deep structures involved. No tendon injury was identified. The wound was repaired with 6-0 proline. The wound repair was simple. The procedure was performed by Andra Graham, [employer] student. OMS surgeon contacted from [place]. Dr. Reyes would like to have her follow-up in his office this week. He stated she did not need to be on any extra antibiotics. Patient informed of what Dr. Reyes said. She will follow-up with him this week as well as Dr. Jimenez tomorrow regarding her right hip cellulitis. Patient to follow-up with her PCP in 5-7 days for stitches removal. Patient agrees with plan of care. Decision to Disposition Date: Nov 12, 2018 Decision to Disposition Time: 15:15 Depart Departure Latest Vital Signs Vital Signs Date Time Temp Pulse Resp B/P (MAP) Pulse Ox O2 Delivery O2 Flow Rate FiO2 11/12/18 16:30 112 108/80 (89) 95 11/12/18 11:55 98.7 18 Room Air Impression: Primary Impression: Closed blow-out fracture of right orbit Additional Impression: Laceration of face Condition: Improved Disposition: HOME OR SELF-CARE Referrals: MARILEE BLACKWOOD (PCP) TAMMY JIMENEZ MD Patient Instructions: Facial Fracture (ED), Facial Laceration (ED) Additional Instructions: Please drink plenty of water and get plenty of rest. Follow-up with your primary care provider in 5-7 days to have the stitches remove. Follow-up with Dr. Gutierrez tomorrow regarding your left hip cellulitis infection. Follow-up with Dr. Reyes: pnone: [phone]. Address: [address] [place] [address] [address] [place] [address]. Return to the ER for worsening pain in your right eye, decreased vision, fevers, difficulty breathing, or for any other concern. Problem Qualifiers Primary Impression: Closed blow-out fracture of right orbit Encounter type: initial encounter Qualified Codes: S02.31XA - Fracture of orbital floor, right side, initial encounter for closed fracture Additional Impression: Laceration of face Encounter type: initial encounter Qualified Codes: S01.81XA - Laceration without foreign body of other part of head, initial encounter BLANCA COSYB Nov 12, 2018 12:05
[2018-11-12] MEDS ORDERED: VANCOMYCIN 1 GM VIAL IVPB ONE (12:35)
[2018-11-12] MEDS ORDERED: VANCOMYCIN(*) 1 GM VIAL 2 GM, VANCOMYCIN (*) 0.5 GM VIAL 0.5 GM in NS(*) 0.9% 500 ML BA... IVPB ONE (13:00)
[2018-11-12 13:01] LABS: PLATELET COUNT, AUTOMATED 407 K/uL (150-450)
[2018-11-12 13:06] LABS: INR 0.95
[2018-11-12] MEDS ORDERED: DICL500C66 PO (13:13)
[2018-11-12] MEDS ORDERED: DIPHTH/TETANUS/ACEL. PERTUSSIS IM ONLY ONE (13:20)
--- NOTE | 2018-11-12 13:27 | EKG ---
FAC[place] [facility] [place] PATIENT NAME: SATINDER MCKINNON : [id number] MR: [id number] V: [id number] EXAM DATE: ORDERING PHYSICIAN: BLANCA COSBY TECHNOLOGIST: LARRY Test Reason : FALL Blood Pressure : / mmHG Vent. Rate : 104 BPM Atrial Rate : 104 BPM P-R Int : 166 ms QRS Dur : 092 ms QT Int : 364 ms P-R-T Axes : 051 -06 033 degrees QTc Int : 478 ms Sinus tachycardia Otherwise normal ECG Confirmed by SUZY LEDESMA ([id number]) on 11/12/2018 5:13:42 PM Referred By: NICKOLAS Confirmed By:SUZY LEDESMA
--- NOTE | 2018-11-12 14:12 | RADIOLOGY IMAGING REPORT ---
FACILITY: [facility] PATIENT NAME: Rochelle Lambert : 1940 MR: [id number] V: [id number] EXAM DATE: ORDERING PHYSICIAN: BLANCA COSBY TECHNOLOGIST: [facility] Patient: Rochelle Lambert : 1940 Visit/Account:[id number] Date of Sevice: 11/12/2018 Exam type: PELVIS History: Fell this morning on right hip, recent left hip replacement Comparison: October 23, 2018. Findings: An AP view the pelvis and an AP view of the left hip demonstrates a left hip arthroplasty that appear s in good anatomic alignment in AP projection. No gross evidence of acute pelvic fracture. There ar e spondylotic changes lower lumbar spine IMPRESSION: 1. Left hip arthroplasty appears in good anatomic alignment No evidence of a pelvic fracture Report Dictated By: Vane Guerin MD at 11/12/2018 2:05 PM Report E-Signed By: Vane Guerin MD at 11/12/2018 2:07 PM WSN:[email or web address]
--- NOTE | 2018-11-12 14:13 | RADIOLOGY IMAGING REPORT ---
FACILITY: [facility] - [place] PATIENT NAME: Rochelle Lambert : 1940 MR: [id number] V: [id number] EXAM DATE: ORDERING PHYSICIAN: BLANCA COSBY TECHNOLOGIST: Location: [facility] - [place] Patient: Rochelle Lambert : 1940 Visit/Account:[id number] Date of Sevice: 11/12/2018 Exam type: CHEST PA LAT History: Fall Comparison: September 04, 2018. Findings: There is mild chronic peribronchial thickening bilaterally. There is no evidence of acute appearing infiltrates, pleural effusions or pulmonary edema. Cardiac silhouette is mildly enlarged. This calc ification the mitral annulus. There are spondylotic changes in the thoracic spine. IMPRESSION: 1. Mild chronic peribronchial thickening and mild cardiomegaly although no acute cardiopulmonary pro cess is seen Report Dictated By: Vane Guerin MD at 11/12/2018 2:07 PM Report E-Signed By: Vane Guerin MD at 11/12/2018 2:09 PM WSN:[email or web address]
--- NOTE | 2018-11-12 14:21 | RADIOLOGY IMAGING REPORT ---
[place] [facility] [place]: Rochelle Lambert : 1940 MR: [id number] V: [id number] EXAM DATE: ORDERING PHYSICIAN: BLANCA COSBY TECHNOLOGIST: Location: [facility] - [place] Patient: Rochelle Lambert : 1940 Visit/Account:[id number] Date of Sevice: 11/12/2018 EXAMINATION: Head CT without intravenous contrast HISTORY: Fall. Hit head. COMPARISON: None. TECHNIQUE: Contiguous axial images were obtained from the skull base to the vertex without intraven ous contrast. Sagittal and coronal reformatted images are also submitted. One of the following dose optimization techniques was utilized in the performance of this exam: Autom ated exposure control; adjustment of the mA and/or kV according to the patient's size; or use of an i terative reconstruction technique. Specific details can be referenced in the facility's radiology C T exam operational policy. FINDINGS: Brain and intracranial structures: Ventricles, sulci, and cisterns are normal in size. Mae-white ma tter differentiation is maintained. No midline shift, acute hemorrhage, acute infarct, or mass. Vessels: Mild calcification of the carotid siphons. Calvarium / scalp: Right frontal scalp hematoma. No acute fracture of the calvarium. Skull base / visualized face: Acute blowout fracture of the floor of the right orbit with displaceme nt of fragments into the right maxillary sinus. Visualized sinuses / orbits: Acute blowout fracture of the floor of the right orbit. Fracture fragme nts are displaced into the right maxillary sinus orbital fat in the inferior rectus muscle protrudes through the defect into the upper right maxillary sinus. There is air within the right orbit and righ t periorbital soft tissues. There is swelling in the right periorbital soft tissues there is a small amount of blood within the right maxillary sinus. Trace mucosal thickening in the left maxillary sinu s. Mild patchy mucosal thickening in the ethmoid air cells. IMPRESSION: No acute intracranial hemorrhage. Acute blowout fracture of the floor of the right orbit. Right frontal scalp hematoma and right periorbital soft tissue swelling. Report Dictated By: Cristi Liu MD at 11/12/2018 2:05 PM Report E-Signed By: Cristi Liu MD at 11/12/2018 2:17 PM WSN:[id number]
[2018-11-12 16:30] VITALS: BP 108/80
== END 2018-11-12 16:58 | disposition home or self-care (01) ==
LOC: ER 11:59
DX: S02.31XA Fracture of orbital floor, right side, initial encounter for closed fracture (principal); S01.111A Laceration without foreign body of right eyelid and periocular area, initial encounter; R00.0 Tachycardia, unspecified; W18.30XA Fall on same level, unspecified, initial encounter
CPT/HCPCS: 12011; 36415; 70450; 71046; 72170; 81001; 83605; 84484; 85025; 85610; 85730; 87040; 90471; 90715; 93005; 96365; 96366; 99285; J3370; J7040; 82040; 82247; 82310; 82374; 82435; 82565; 82947; 84075; 84132; 84155; 84295; 84450; 84460; 84520

== ENCOUNTER 2018-11-20 00:29 | Inpatient (IN) | payer MEDICARE, BC ==
[2018-11-19 13:49] LABS: PLATELET COUNT, AUTOMATED 339 K/uL (150-450)
[2018-11-19 13:57] LABS: INR 0.96
[2018-11-20] VITALS (10 sets, daily range): BP systolic 94–148; BP diastolic 66–91
[~2018-11-20] VITALS: Ht 160 cm; Wt 103.4 kg
[~2018-11-20 00:29] MED LIST changes: +DICL500C66 PO; +LORA10CA3 PO; +METH-280 PO; +POTA99TA6 PO
[2018-11-20] MEDS ORDERED: ONDANSETRON 4 MG/2 ML VIAL ONE (13:40)
[2018-11-20] MEDS ORDERED: LIDOCAINE MPF 1% 5 ML VIAL ONE (13:40)
[2018-11-20] MEDS ORDERED: PROPOFOL EMUL(*) 10MG/ML 20 ML 20 ML ONE (13:40)
[2018-11-20] MEDS ORDERED: DEXAMETHASONE SOD 4 MG/ML VIAL ONE (13:40)
[2018-11-20] MEDS ORDERED: fentaNYL CITR 100 MCG/2 ML AMP ONE ×2 (13:41→19:29)
[2018-11-20] MEDS ORDERED: TRANEXAMIC AC 1000 MG/10ML SDV 1,000 MG in DEXTROSE 5% 50 ML BAG 50 ML IV ONE (13:45)
[2018-11-20] MEDS ORDERED: ACETAMINOPHEN 500 MG TAB PO ONE (13:45)
[2018-11-20] MEDS ORDERED: KETAMINE HCL 200 MG/20 ML MDV ONE (13:45)
[2018-11-20] MEDS ORDERED: FAMOTIDINE 20 MG TAB PO ONE (13:45)
[2018-11-20] MEDS ORDERED: CELECOXIB 200 MG CAP PO ONE (13:45)
[2018-11-20] MEDS ORDERED: PREGABALIN 75 MG CAPSULE PO ONE (13:45)
[2018-11-20] MEDS ORDERED: NORMOSOL R SOLN(*) 1000 ML BAG 1,000 ML IV PRN ×2 (13:45→19:05)
[2018-11-20] MEDS ORDERED: ROPIVACAINE/EPI/CLONIDINE/KET 50 ML SYRINGE INJ ONE (13:45)
[2018-11-20] MEDS ORDERED: LIDOCAINE/SOD BICARB 8.4% SYR ID ONE (13:45)
[2018-11-20] MEDS ORDERED: ceFAZolin(*) 2GM/D5W 50ML 50 ML IVPB ONE (13:45)
[2018-11-20] MEDS ORDERED: MIDAZOLAM 2 MG/2 ML VIAL IVP PRN (15:50)
[2018-11-20] MEDS ORDERED: ROCURONIUM BR 10 MG/ML 5 ML SY 5 ML ONE (16:35)
[2018-11-20] MEDS ORDERED: SUGAMMADEX SOD 200 MG/2 ML SDV ONE (16:35)
[2018-11-20] MEDS ORDERED: VANCOMYCIN 1 GM VIAL ONE (16:54)
[2018-11-20] MEDS ORDERED: ACETAMINOPHEN 325 MG TAB PO PRN (19:05)
[2018-11-20] MEDS ORDERED: BISACODYL 10 MG SUPP PR PRN (19:05)
[2018-11-20] MEDS ORDERED: diphenhydrAMINE 50 MG/ML VIAL IVP PRN (19:05)
[2018-11-20] MEDS ORDERED: MORPHINE 2 MG/ML SYR IVP PRN (19:05)
[2018-11-20] MEDS ORDERED: ZOLPIDEM TARTRATE 5 MG TAB PO PRN (19:05)
[2018-11-20] MEDS ORDERED: diphenhydrAMINE 25 MG CAP PO PRN (19:05)
[2018-11-20] MEDS ORDERED: FLUSH 10 ML SYR IVP PRN (19:05)
[2018-11-20] MEDS ORDERED: PROMETHAZINE 25 MG/ML 1 ML AMP IVP PRN (19:05)
[2018-11-20] MEDS ORDERED: BENZOCAINE/MENTHOL 1 EACH LOZG PO PRN (19:05)
[2018-11-20] MEDS ORDERED: MAGNESIUM HYDROXIDE* 30ML UDCP PO PRN (19:05)
[2018-11-20 19:34] LABS: PLATELET COUNT, AUTOMATED 302 K/uL (150-450)
--- NOTE | 2018-11-20 20:12 | RADIOLOGY IMAGING REPORT ---
FACILITY: [facility] PATIENT NAME: Rochelle Lambert : 1940 MR: [id number] V: [id number] EXAM DATE: ORDERING PHYSICIAN: TAMMY QUIROGA TECHNOLOGIST: Location: [facility] Patient: Rochelle Lambert : 1940 Visit/Account:[id number] Date of Sevice: 11/20/2018 PELVIS HISTORY: Arthroplasty COMPARISON: None FINDINGS: Left SAEID in good alignment. No significant periprosthetic lucency. No evidence of acute f racture. IMPRESSION: 1. Left SAEID in good alignment. Report Dictated By: Alexys Hicks MD at 11/20/2018 8:04 PM Report E-Signed By: Alexys Hicks MD at 11/20/2018 8:06 PM WSN:[email or web address]
--- NOTE | 2018-11-20 21:00 | OPERATIVE REPORT 1 ---
EVENT DATE: November 20, 2018 SURGEON: Juloi Jimenez MD ANESTHESIOLOGIST: Claudio Caal MD ANESTHESIA: General plus spinal. FOIL STAMP OPERATOR: Klaus Acuna PA-C PREOPERATIVE DIAGNOSIS Left hip hematoma with persistent drainage status post total hip arthroplasty four weeks ago. POSTOPERATIVE DIAGNOSES 1. Left hip hematoma with persistent drainage status post total hip arthroplasty four weeks ago. 2. Presumed infected hematoma extending to the deep portion of the wound. PROCEDURES PERFORMED 1. Irrigation and debridement of infected hematoma, left hip, including skin, subcutaneous tissue, fascia, down to bone. 2. Polyethylene liner exchange. 3. Exchange of the femoral head. ESTIMATED BLOOD LOSS 800 mL. DRAINS Hemovac times two. SPECIMENS Swabs and tissue sent for stat Gram stain, culture, and sensitivity. COMPLICATIONS None apparent. IMPLANTS USED Implants exchanged are a Trident X3 zero-degree polyethylene insert to accommodate a 36 mm head, alpha code E, and a Biolox Delta Ceramic C-Taper femoral head, 36 mm, +7.5, with a V40 C-Taper adapter sleeve. INDICATIONS Rochelle is four weeks out from index arthroplasty and has had persistent wound drainage with some associated erythema. Surgery is indicated at this time to irrigate and debride the wound to minimize risk of persistent or worsening infection that may require complete component explantation. DESCRIPTION OF PROCEDURE Patient is taken to the operating room and placed supine on the operating table. General anesthesia induced after spinal block is placed by the anesthesiologist. No antibiotics were administered preoperatively, but the patient has been on Keflex and dicloxacillin before the procedure. Left lower extremity is prepped and draped in the usual sterile fashion for orthopedic surgery. The old scar is opened and extended a centimeter proximally and distally. Copious hematoma is noted along with some fibrinous tissue. There is no stephanie purulence, but the quality of tissue appears poor. Subcutaneous tissue has a thin layer of fibrinous debris and some small patches of mild tissue necrosis. There is an obvious rent in the deep fascia extending down towards the implants. Swabs and tissue are sent for culture, and a provisional lavage is performed. A meticulous debridement is then performed starting with ellipsing of 2 mm skin edge on each side of the wound to allow better seal, debriding a millimeter or two of the deep fat down to the level of the fascia. The fascia is then freed up so that it is clearly identified and is reopened distally and proximally where it has healed. All suture material is removed as much as can be identified. Gloved finger is used beneath the fascial layer to separate this from the underlying abductor, and the abductor mechanism is protected with a blunt Hohmann. The femoral head is dislocated and disimpacted with a tamp. Debridement of capsule and fibrinous debris and scar down at the deep capsule layer is performed all the way down to bone. Curettage of the surrounding tissue is performed to remove any granulation tissue or fibrinous debris. This area is then lavaged with 3 L of saline, and a secondary clean-up is performed on all layers. At this point, the small curved osteotome is introduced at the junction of the shell on the polyethylene liner, and this is used to pop the polyethylene out of the shell. The deep shell is then cleaned. Actually, a sterile scrub brush is used to scrub this as well as the trunion. Irrisept is then placed deep in the wound and allowed to saturate through the tissues for a minute to two minutes and then washed out with normal irrigation. After thoroughly debriding the deep tissues, a new liner inserted and impacted into the cup and seats nicely. Subsequently, an adapter is placed onto the prior Verma taper, and then the new head is impacted into position. The joint is reduced. Pain cocktail is infiltrated throughout the wound, and additional lavage is performed. A deep drain is placed, and then the fascia is closed with a running antibiotic-impregnated #1 PDS suture. A second drain is placed at the surface above the deep fascia and the deep subcutaneous tissue. Some of the space is closed with a couple of interrupted PDS sutures, and then the skin is closed with 2-0 nylon vertical mattress and simple sutures. Xeroform is applied for a dry, sterile dressing and compression wrap. Patient is awakened from anesthesia and taken to the recovery room in stable condition having tolerated the procedure well. PLAN Plan is for rehab per protocol, posterior hip precautions, weight bear as tolerated. Infectious Disease consultation will be pending to adjust the antibiotics based on the culture findings. [facility]
--- NOTE | 2018-11-20 22:39 | Hospitalist Consultation ---
History of Present Illness Requesting Physician Dr Gutirerez Reason for Consult management medical comorbidities Chief Complaint L hip hematoma History of Present Illness 78F who developed hematoma after L TKA admitted after I&D. Tolerated procedure well. No concerns when seen this evening. She does have significant ecchymosis of face after fall 8 days ago. History Problems: (1) HTN (hypertension) Status: Chronic (2) Asthma Status: Chronic (3) Afib Home Meds Active Scripts Aspirin (ASPIRIN) 325 Mg Tablet, 325 MG PO QDAY, #30 TAB Prov:KENDAL BAIRD RADIOLOGY ADMINISTRATOR 10/26/18 Reported Medications Dicloxacillin Sodium (DICLOXACILLIN SODIUM) 500 Mg Capsule, 500 MG PO BID, CAPSULE 11/12/18 Potassium Gluconate (POTASSIUM) 99 Mg Tablet, 99 MG PO 11/12/18 Loratadine (CLARITIN) 10 Mg Capsule, 10 MG PO PRN, CAPSULE 11/12/18 Methocarbamol (METHOCARBAMOL) 750 Mg Tablet, 750 MG PO QID 11/12/18 [eye vitamin] No Conflict Check, 1 TAB PO DAILY 10/23/18 [crill oil] No Conflict Check, 1 TAB PO DAILY 10/23/18 Guaifenesin (MUCINEX) 600 Mg Tablet.er, 600 MG PO BID 10/23/18 Diltiazem Hcl (DILTIAZEM ER) 180 Mg Cap.er.deg, 180 MG PO DAILY 10/23/18 Montelukast Sodium (Singulair) 10 Mg Tab, 10 MG PO QDAY, 0 Refills 03/28/10 Hydrochlorothiazide (Hydrochlorothiazide) 25 Mg Tab, 25 MG PO QDAY, 0 Refills Hold for 2 days, then resume. If you feel dizzy, stop medication and notify Primary Care Provider. 03/28/10 Spironolactone (Spironolactone) 50 Mg Tablet, 50 MG PO DAILY, 0 Refills Hold for 4 days, then resume. If you feel dizzy, stop medication and call your primary care provider. 03/28/10 Salmeterol Xinaf/Fluticasone (Advair 250/50 Diskus) 250 Mcg/50 Mcg Inh, 1 PUFF INH BID, 0 Refills 1 PUFF 03/28/10 Allergies: Coded Allergies: propoxyphene (Verified Allergy, Mild, nausea, 11/12/18) Uncoded Allergies: horse serum (Allergy, Unknown, 10/17/18) Patient History: Breast cancer MOTHER, Hx Smoking: Yes (FOR 3 YRS 1961) Smoking Status: Former Smoker Caffeine Intake: Coffee, Tea Caffeine/Cups Per Day: 2 Hx Alcohol Use: Yes Hx Substance Use Disorder: No Social Drug Use: Never Review of Systems All Systems Reviewed/Normal: Yes, Except as Noted Cardiovascular: No Chest Pain, No Palpitations Respiratory: No Shortness of Breath Musculoskeletal: No Pain Exam Vital Signs Vital Signs Date Time Temp Pulse Resp B/P (MAP) Pulse Ox O2 Delivery O2 Flow Rate FiO2 11/20/18 20:15 90 16 91 11/20/18 13:51 Nasal Cannula 2.0 11/20/18 13:51 98.2 138/91 (107) General Appearance: Alert, Awake, No Acute Distress (significant ecchymosis of face after fall, R supraorbital hematoma) Cardiovascular: Other (irregularly irregular, 3/6 systolic murmut) Respiratory: No Respiratory Distress GI: Abd Soft and Non-Tender Extremities: Soft and Non Tender, Warm, Pulses, Perfused Medical Decision Making Data Points Result Diagram: 11/20/18 1920 11/19/18 1338 Assessment and Plan Problems: (1) Hip hematoma, left Assessment & Plan: Per primary, monitor cultures. (2) Pulmonary hypertension Assessment & Plan: On chronic O2 at 2L daytime and 3L night. Continue Advair (3) HTN (hypertension) Status: Chronic Assessment & Plan: Continue chronic HCTZ and spironolactone. (4) Afib Assessment & Plan: Rate controlled on diltiazem. Not on anticoagulation, takes ASA per patient. Venous Thromboembolism Antithrombotics Is Pt On Any Antithrombotics?: Yes KATYA ROSARIO DO Nov 20, 2018 22:39
[2018-11-21] VITALS (14 sets, daily range): BP systolic 110–144; BP diastolic 60–94
[2018-11-21] MEDS: ceFAZolin(*) 2GM/D5W 50ML 50 ML IVPB SCH ×4 (00:50→23:54)
[2018-11-21] MEDS ORDERED: ceFAZolin(*) 2GM/D5W 50ML 50 ML IVPB SCH (01:00)
[2018-11-21] MEDS: DIAZEPAM 5 MG TAB PO PRN ×2 (01:02→21:19)
[2018-11-21] MEDS: SALMETEROL/FLUTIC 250/50 1 INH INH SCH ×2 (05:40→17:11)
[2018-11-21 06:01] LABS: PLATELET COUNT, AUTOMATED 311 K/uL (150-450)
[2018-11-21] MEDS ORDERED: NS(*) 0.9% 500 ML BAG 500 ML IV PRN (08:30)
[2018-11-21] MEDS: CELECOXIB 200 MG CAP PO SCH ×2 (09:10→16:45)
[2018-11-21] MEDS: ASPIRIN 325 MG TAB PO SCH (09:10)
[2018-11-21] MEDS: MONTELUKAST SODIUM 10 MG TAB PO SCH (09:10)
[2018-11-21] MEDS: DILTIAZEM CD 180 MG CAPCR PO SCH (09:11)
[2018-11-21] MEDS: HYDROCHLOROTHIAZIDE 25 MG TAB PO SCH (09:11)
[2018-11-21] MEDS: SPIRONOLACTONE 25 MG TAB PO SCH (09:11)
--- NOTE | 2018-11-21 10:36 | Hospitalist Progress Note ---
Subjective Progress Notes Subjective She was admitted s/p I&D of her hip. She has wound vac placed draining blood. She was ordered to have blood transfused by Dr. Jimenez. She has complaints of difficulty sleeping at night. Patient Complains of: Cardiovascular: No: Chest Pain Respiratory: No: Shortness of Breath Physical Exam Vital Signs Date Time Temp Pulse Resp B/P (MAP) Pulse Ox O2 Delivery O2 Flow Rate FiO2 11/21/18 07:07 98.5 93 16 123/70 (87) 96 Nasal Cannula 2.0 Intake and Output 11/21/18 07:01 Intake Total 3090 ml Output Total 885 ml Balance 2205 ml Intake Oral 240 ml IV Total 2850 ml Output Drainage Total 210 ml Estimated Blood Loss 600 ml Other 75 ml # Voids 3 General Appearance: Alert, Awake, No Acute Distress, Afebrile Neuro: No Gross deficits Cardiovascular: Regular Rate and Rhythm Respiratory: No Respiratory Distress, Clear to Auscultation Extremities: Warm, Perfused, Other (hip draining blood, gown soaked upon exam) Psych: Alert & Oriented X3, Appropriate Mood & Affect Result Diagram: 11/21/18 0517 11/19/18 1338 Assessment and Plan Problems: (1) Hip hematoma, left Assessment & Plan: Per primary, monitor cultures. She will get PICC placed. (2) Blood loss anemia Status: Acute Assessment & Plan: Her hemoglobin dropped from 10.2 to [address] Jimenez ordered 2units PRBCs today. (3) Pulmonary hypertension Assessment & Plan: On chronic O2 at 2L daytime and 3L night. Continue Advair (4) HTN (hypertension) Status: Chronic Assessment & Plan: Continue chronic HCTZ and spironolactone. (5) Afib Assessment & Plan: Rate controlled on diltiazem. Not on anticoagulation, takes ASA per patient. Exam Sepsis Risk: No Definite Risk Problem Qualifiers (1) HTN (hypertension): Hypertension type: essential hypertension Qualified Codes: I10 - Essential (primary) hypertension KENDAL BAIRD SPORTS BETTING MANAGER Nov 21, 2018 10:36
[2018-11-21] MEDS: APAP/HYDROCODONE 325/7.5 TAB PO PRN ×3 (10:51→19:55)
--- NOTE | 2018-11-21 12:15 | NUR ---
Physical Therapy Impression PT eval completed with discussion of past 4 weeks in the home environment; oozing wound and subsequent fall at home causing a R) orbit fracture. Pt verbalizes understanding of posterior hip precautions and pt is WBAT. Pt again indicates that she would like to return home and follow up with out pt therapy after discharge from hospital. Pt indicates that she was up walking with nursing last night and sat up in recliner in order to find a comfortable position due to her "restless legs". Pt also noted to have fairly significant bleeding last night into hemovac, as well as onto clothing and bedding. Pt does request to be educated in other resting positions to allow for more comfortable sleeping at night. Upon clarification with surgeon she may be instructed in R) sidelying with pillows between legs to support in a neutral position. Pt will return after transfusion complete to address this. PT applied rommel wrap for compression when nursing changed dressing and obtained a slightly smaller, clean hip wrap to apply during next transfer, to provide more uniform compression at incision line. Physical Therapy Goals 1. Pt to ambulate x 100' with least restrictive device and demonstrate proper safety awareness. 2. Pt to complete up/down 4 steps with rail and CGA/SBA 3. Pt to be SBA to ensure proper technique with bed mobility including R) sidelying for comfort 4. Pt to be SBA/Modified indep with supine to/from sit transfers Patient's Goals
--- NOTE | 2018-11-21 12:44 | Medical Nutrition Therapy ---
Nutrition Anthropometrics Height (Inches): 63.00 Height (Calculated Centimeters: 160.793438 Weight (Pounds): 228 Weight (Calculated Kilograms): 103.419 BMI: 40.4 Hx Weight Loss: Yes (Intentional Wt Loss) Todd Nutrition Score: Adequate Todd Nutrition Risk Score: 20 Dietary Referral Nutrition Risk Factors: Nutrition Risk Comment: Physical Findings Physical Appearance: Morbidly Obese 40+ Skin Appearance Skin Appearance: Edema Edema Location Modifier: Both Edema Location: Ankle Type of Edema: Degree of Edema: 2+ Gastrointestinal Symptoms GI Symtoms: Tube Present: Bowel Sounds: Recent Bowel Pattern: Stool Characteristics: Nutrition/Food History Good Breakfast: Estonian Muffine, Egg, Sausage/Ham Lunch: Veggies,Cheese Dinner: Fish, Pasta, Salad Nutritional Diagnosis Past Medical History: HTN, Hip Replacement Nutritional Acuity: 4-Low Energy Requirement: 1938 Protein Requirement: 103 (1g/kg) Fluid Requirement: 1939 (1mL/kcal) Nutrition Monitoring & Eval Nutrition Goals: Eat 50-100% Meal Nutrition Follow-Up: Good Intake RD Patient Assessment Time: [address] Assessment Type: RD Assessment Patient Nutrition Acuity: 4-Low Follow Up Date: Nov 28, 2018 Nutritional Comment: 11/21/18-Reviewed pt history. Pt reported intentional wt loss, reports losing 40 lbs thus far. Discussed importance of eating adequate protein to preserve lean body mass and promote fat loss when trying to lose weight. RD will remain available prn.KRYSTAL CRISTINA Nov 21, 2018 12:44
--- NOTE | 2018-11-21 15:30 | NUR ---
Physical Therapy Impression Addressed technique to roll with hooklying position and pillow between legs, onto R) side, using log roll movement to adhere to posterior hip precautions. Physical Therapy Goals 1. Pt to ambulate x 100' with least restrictive device and demonstrate proper safety awareness. 2. Pt to complete up/down 4 steps with rail and CGA/SBA 3. Pt to be SBA to ensure proper technique with bed mobility including R) sidelying for comfort 4. Pt to be SBA/Modified indep with supine to/from sit transfers Patient's Goals
[2018-11-21] MEDS: MELATONIN 3 MG TAB PO SCH (21:19)
[2018-11-22 02:37] VITALS: BP 129/72
[2018-11-22] MEDS: APAP/HYDROCODONE 325/7.5 TAB PO PRN ×3 (02:44→21:43)
[2018-11-22] MEDS: SALMETEROL/FLUTIC 250/50 1 INH INH SCH ×2 (05:20→17:36)
[2018-11-22 06:07] LABS: PLATELET COUNT, AUTOMATED 236 K/uL (150-450)
[2018-11-22 06:58] VITALS: BP 126/80
[2018-11-22] MEDS: CELECOXIB 200 MG CAP PO SCH ×2 (09:42→16:29)
[2018-11-22] MEDS: HYDROCHLOROTHIAZIDE 25 MG TAB PO SCH (09:42)
[2018-11-22] MEDS: ceFAZolin(*) 2GM/D5W 50ML 50 ML IVPB SCH (09:42)
[2018-11-22] MEDS: MONTELUKAST SODIUM 10 MG TAB PO SCH (09:42)
[2018-11-22] MEDS: ASPIRIN 325 MG TAB PO SCH (09:42)
[2018-11-22] MEDS: DILTIAZEM CD 180 MG CAPCR PO SCH (09:42)
[2018-11-22] MEDS: SPIRONOLACTONE 25 MG TAB PO SCH (09:42)
--- NOTE | 2018-11-22 11:04 | Hospitalist Progress Note ---
Subjective Progress Notes Subjective She was admitted s/p I&D of her hip. She has no complaints this morning. She had no acute events overnight. Patient Complains of: Cardiovascular: No: Chest Pain Respiratory: No: Shortness of Breath Physical Exam Vital Signs Date Time Temp Pulse Resp B/P (MAP) Pulse Ox O2 Delivery O2 Flow Rate FiO2 11/22/18 06:58 98.0 73 13 126/80 (95) 98 Nasal Cannula 3.0 Intake and Output 11/22/18 07:01 Intake Total 995 ml Output Total 60 ml Balance 935 ml Intake Oral 240 ml IV Total 255 ml Blood Product 500 ml Drainage Total 60 ml # Voids 8 # Bowel Movements 1 General Appearance: Alert, Awake, No Acute Distress, Afebrile Neuro: No Gross deficits Cardiovascular: Regular Rate and Rhythm Respiratory: No Respiratory Distress, Clear to Auscultation GI: Soft and Non-Tender Psych: Alert & Oriented X3, Appropriate Mood & Affect Result Diagram: 11/22/18 0520 11/19/18 7473 Assessment and Plan Problems: (1) Hip hematoma, left Assessment & Plan: Per primary, monitor cultures. She will get PICC placed. (2) Blood loss anemia Status: Acute Assessment & Plan: Her hemoglobin dropped from 10.2 to 8.1 post-operatively. She received 2units PRBCs 11/21. Continue to monitor. (3) Pulmonary hypertension Assessment & Plan: On chronic O2 at 2L daytime and 3L night. Continue Advair (4) HTN (hypertension) Status: Chronic Assessment & Plan: Continue chronic HCTZ and spironolactone. (5) Afib Assessment & Plan: Rate controlled on diltiazem. Not on anticoagulation, takes ASA per patient. Exam Sepsis Risk: No Definite Risk Problem Qualifiers (1) HTN (hypertension): Hypertension type: essential hypertension Qualified Codes: I10 - Essential (primary) hypertension KENDAL BAIRD MACHINE II CUTTER Nov 22, 2018 11:04
[2018-11-22] MEDS ORDERED: LIDOCAINE MPF 1% 5 ML VIAL ONE ×2 (11:22→11:23)
--- NOTE | 2018-11-22 11:34 | Antimicrobial Stewardship ---
Antimicrobial Stewardship Empiricly appropriate: Yes (Cefazolin 2g IV q8h) Significant PMH: Yes (L SAEID- October 2018, afib, pulmonary HTN, HTN, anemia secondary to blood loss) Support empiric regimen: Yes Approriate Cultures done: Yes (Hip Gram Stain, Wound Cx: rare GPC, few WBCs, R/O possible anaerobe, 1+ normal skin michael) Gram stain show Microbs: Yes Renal/Hepatic dosing: Yes (Scr = 0.6, rounded to 0.8, CrCL ~69 mL/min) Determine cumulative duration: Today is day: 2 of therapy Determine standard duration: 4-6 weeks Comment 78 yo F with a PMH of L SAEID- October 2018, afib, pulmonary HTN, HTN, anemia secondary to blood loss who presented s/p fall. She hit her head and R side of her face on her fall. L hip per history, had been oozing s/p L SAEID in October of 2018. Tmax afebrile WBC 3.7-->4 Neuts 64-69% CRP 2.9 ESR 23 Scr 0.6 CrCL ~ 69 ml/min I and D done in the OR, cultures send to lab: Gram stain and wound culture: Rare GPC, few WBCs, 1+ normal skin michael, R/O possible anaerobe Blood Cx: not ordered Antibiotics: Cefazolin 2g IV q8h with plan to treat for 4-6 weeks Per MD, ID consult with Dr. Cody in [place]. Final treatment plan pending, based on culture and sensitivity in addition to recommendations from ID. Libra Gonzalez, PharmD, BCOP LIBRA GONZALEZ Nov 22, 2018 11:34
--- NOTE | 2018-11-22 11:41 | NUR ---
Physical Therapy Impression Pt is s/p 4 weeks from previous L) SAEID and is aware and compliant with posterior hip precautions in general. Pt agreeable to review sidelying technique while maintaining hip precautions to allow for options to reduce back discomfort during recovery. Approval gained by consult with surgeon prior to activity. Pt instructed in body alignment with hooklying position to initiate movement and completing a log roll to avoid adduction and IR of hip as she transitions from supine to R) sidelying, with a thick pillow placed lengthwise from thighs to ankles in order to maintain posterior hip precautions while in R) sidelying. Pt tolerated this transition well and was able to return to supine hooklying again with only SBA for minimal cues. Pt is modified indep for supine to/from sit with proper safety awareness. Physical Therapy Goals 1. Pt to ambulate x 100' with least restrictive device and demonstrate proper safety awareness. 2. Pt to complete up/down 4 steps with rail and CGA/SBA 3. Pt to be SBA to ensure proper technique with bed mobility including R) sidelying for comfort 4. Pt to be SBA/Modified indep with supine to/from sit transfers Patient's Goals
[2018-11-22 13:07] VITALS: BP 99/65
[2018-11-22] MEDS: DAPTOMYCIN IV SCH (14:22)
[2018-11-22] MEDS: NS 0.9% IV SCH (14:22)
[2018-11-22 15:50] VITALS: BP 114/73
--- NOTE | 2018-11-22 17:28 | RADIOLOGY IMAGING REPORT ---
FACILITY: PATIENT NAME: Rochelle Lambert : 1940 MR: [id number] V: [id number] EXAM DATE: ORDERING PHYSICIAN: TAMMY QUIROGA TECHNOLOGIST: Location: [facility] [place] Patient: Rochelle Lambert : 1940 Visit/Account:[id number] Date of Sevice: 11/21/2018 US GUIDANCE VASCULAR ACCESS HISTORY: skilled nursing antibiotics Ultrasound was utilized for entry into the left brachial vein. An image of the needle entering the v ein was sent to PACS for permanent archiving. IMPRESSION: Ultrasound utilization for PICC placement as described Report Dictated By: Edward Davenport MD at 11/22/2018 5:20 PM Report E-Signed By: Edward Davenport MD at 11/22/2018 5:21 PM WSN:[email or web address]
--- NOTE | 2018-11-22 17:32 | RADIOLOGY IMAGING REPORT ---
[place] [facility] [place] Rochelle Lambert : 1940 MR: [id number] V: [id number] EXAM DATE: ORDERING PHYSICIAN: TAMMY QUIROGA TECHNOLOGIST: Location: [facility] Patient: Rochelle Lambert : 1940 Visit/Account:[id number] Date of Sevice: 11/21/2018 PICC LINE INSERTION HISTORY: long tern IV atibiotics Technique: Left arm was prepped draped and anesthetized with 1% lidocaine. Utilizing ultrasound guidance entry into the left basilic vein in the upper left arm was achieved. An .018 diomede tipped guidewire was advanced into the SVC. A peel-away sheath was advanced within the basilic vein. An appropriately m easured dual-lumen power PICC was then advanced with the distal tip at the cava atrial junction on final imaging. The catheter was secured to the arm with a stay fix device. IMPRESSION: 1. Successful ultrasound and fluoroscopically directed placement of a left arm PICC line as described. Fluoroscopic time of 0.8 minutes. DAP [id number] Report Dictated By: Edward Davenport MD at 11/22/2018 5:21 PM Report E-Signed By: Edward Davenport MD at 11/22/2018 5:25 PM ELIZAN:RENE
[2018-11-22 19:33] VITALS: BP 115/70
[2018-11-22] MEDS: MELATONIN 3 MG TAB PO SCH (21:04)
[2018-11-22] MEDS: DIAZEPAM 5 MG TAB PO PRN (21:48)
[2018-11-23] MEDS: SALMETEROL/FLUTIC 250/50 1 INH INH SCH (05:25)
[2018-11-23 06:01] LABS: PLATELET COUNT, AUTOMATED 250 K/uL (150-450)
[2018-11-23 06:49] VITALS: BP 135/75
--- NOTE | 2018-11-23 08:44 | Hospitalist Progress Note ---
Subjective Progress Notes Subjective She was admitted s/p I&D of left hip. She has no complaints this morning. She had no acute events overnight. Patient Complains of: Cardiovascular: No: Chest Pain Respiratory: No: Shortness of Breath Physical Exam Vital Signs Date Time Temp Pulse Resp B/P (MAP) Pulse Ox O2 Delivery O2 Flow Rate FiO2 11/23/18 06:49 98.2 85 13 135/75 (95) 95 Nasal Cannula 2.0 Intake and Output 11/23/18 07:01 Intake Total 970 ml Balance 970 ml Intake Oral 840 ml IV Total 130 ml # Voids 10 General Appearance: Alert, Awake, No Acute Distress, Afebrile Neuro: No Gross deficits Cardiovascular: Regular Rate and Rhythm Respiratory: No Respiratory Distress, Clear to Auscultation GI: Soft and Non-Tender Extremities: Warm, Perfused Psych: Alert & Oriented X3, Appropriate Mood & Affect Result Diagram: 11/23/18 0509 11/22/18 1310 Assessment and Plan Problems: (1) Hip hematoma, left Assessment & Plan: Per primary, monitor cultures. She will get PICC placed. She was placed on Daptomycin per primary. She will receive antibiotics in the infusion room at the cancer center. (2) Blood loss anemia Status: Acute Assessment & Plan: Her hemoglobin dropped from 10.2 to 8.1 post-operatively. She received 2units PRBCs 11/21. Hgb staying stable. (3) Pulmonary hypertension Assessment & Plan: On chronic O2 at 2L daytime and 3L night. Continue Advair (4) HTN (hypertension) Status: Chronic Assessment & Plan: Continue chronic HCTZ and spironolactone. (5) Afib Assessment & Plan: Rate controlled on diltiazem. Not on anticoagulation, takes ASA per patient. Exam Sepsis Risk: No Definite Risk Problem Qualifiers (1) HTN (hypertension): Hypertension type: essential hypertension Qualified Codes: I10 - Essential (primary) hypertension KENDAL BAIRDP Nov 23, 2018 08:44
[2018-11-23] MEDS ORDERED: DIA5 PO (08:51)
[2018-11-23] MEDS ORDERED: HYDR-654 PO (08:53)
[2018-11-23] MEDS: ASPIRIN 325 MG TAB PO SCH (09:01)
[2018-11-23] MEDS: SPIRONOLACTONE 25 MG TAB PO SCH (09:01)
[2018-11-23] MEDS: DILTIAZEM CD 180 MG CAPCR PO SCH (09:01)
[2018-11-23] MEDS: MONTELUKAST SODIUM 10 MG TAB PO SCH (09:01)
[2018-11-23] MEDS: HYDROCHLOROTHIAZIDE 25 MG TAB PO SCH (09:01)
[2018-11-23] MEDS: CELECOXIB 200 MG CAP PO SCH (09:01)
[2018-11-23] MEDS: DAPTOMYCIN IV SCH (14:07)
[2018-11-23] MEDS: NS 0.9% IV SCH (14:07)
--- NOTE | 2018-11-23 14:30 | NUR ---
This Physical Therapist or Instructional Specialist was present for the entire physical therapy session directing the services, making the skilled judgement, and was not engaged in treating another patient or doing another task at the same time as the treatment session. Addendum: 11/23/18 at 1431 by JESI LAI PT Amended: Links added.
--- NOTE | 2018-11-23 14:30 | NUR ---
Physical Therapy Impression Pt with no concerns about discharge. Pt confident in ability to perform stairs and follow hip precautions. Pt near all PT goals and safe for discharge. Rec OP PT. Physical Therapy Goals 1. Pt to ambulate x 100' with least restrictive device and demonstrate proper safety awareness. 2. Pt to complete up/down 4 steps with rail and CGA/SBA 3. Pt to be SBA to ensure proper technique with bed mobility including R) sidelying for comfort 4. Pt to be SBA/Modified indep with supine to/from sit transfers Patient's Goals Addendum: 11/23/18 at 1431 by JESI LAI PT Amended: Links added.
== END 2018-11-23 16:08 | disposition home or self-care (01) | DRG 467 ==
LOC: OR 00:29 → MED 20:15
PROVIDERS: ADMIT Orthopaedic Surgery; ATTEND Orthopaedic Surgery
PROC: 0SUS09Z Supplement Left Hip Joint, Femoral Surface with Liner, Open Approach (ICD-10-PCS; 2018-11-20)
PROC: 0J9M0ZX Drainage of Left Upper Leg Subcutaneous Tissue and Fascia, Open Approach, Diagnostic (ICD-10-PCS; 2018-11-20)
PROC: 0SPB09Z Removal of Liner from Left Hip Joint, Open Approach (ICD-10-PCS; principal; 2018-11-20 16:03)
PROC: B548ZZA Ultrasonography of Superior Vena Cava, Guidance (ICD-10-PCS; 2018-11-21)
PROC: 02HV33Z Insertion of Infusion Device into Superior Vena Cava, Percutaneous Approach (ICD-10-PCS; 2018-11-21)
PROC: 30243N1 Transfusion of Nonautologous Red Blood Cells into Central Vein, Percutaneous Approach (ICD-10-PCS; 2018-11-21)
DX: T84.89XA Other specified complication of internal orthopedic prosthetic devices, implants and grafts, initial encounter (principal); D62 Acute posthemorrhagic anemia; I10 Essential (primary) hypertension; I48.2 Chronic atrial fibrillation; Y83.8 Other surgical procedures as the cause of abnormal reaction of the patient, or of later complication, without mention of misadventure at the time of the procedure; Y79.3 Surgical instruments, materials and orthopedic devices (including sutures) associated with adverse incidents; I27.20 Pulmonary hypertension, unspecified; J45.909 Unspecified asthma, uncomplicated; Z99.81 Dependence on supplemental oxygen; Z88.8 Allergy status to other drugs, medicaments and biological substances; Z87.891 Personal history of nicotine dependence; Z96.642 Presence of left artificial hip joint
CPT/HCPCS: 36415; 36573; 72170; 81001; 82040; 82247; 82310; 82374; 82435; 82550; 82565; 82947; 84075; 84132; 84155; 84295; 84450; 84460; 84520; 85025; 85610; 85651; 86140; 86850; 86900; 86901; 86920; 87070; 87073; 87077; 87176; 87186; 87205; 94640; 97162; C1751; C1776; J0690; J0878; J1100; J2001; J2250; J2405; J2704; J3010; J3370; J3490; J7040; J7050; J7060; P9016